=== PATIENT | male | born 1970 | race Caucasian/White ===

== ENCOUNTER 2017-01-09 18:53 | Emergency (ER) | payer SELFPAY ==
[~2017-01-09] VITALS: Ht 187.9 cm; Wt 83.9 kg
[2017-01-09] MEDS ORDERED: METFORMIN500 MG PO (19:06)
[2017-01-09] MEDS ORDERED: PAXIL10 MG PO (19:07)
[2017-01-09] MEDS ORDERED: GABAPENTIN400 MG PO (19:07)
[2017-01-09] MEDS ORDERED: NAPROSYN500 MG PO (20:54)
== END 2017-01-09 21:53 | disposition home or self-care (01) ==
LOC: ED 18:53
DX: S00.11XA Contusion of right eyelid and periocular area, initial encounter (principal); S29.9XXA Unspecified injury of thorax, initial encounter; Z79.899 Other long term (current) drug therapy; Z88.5 Allergy status to narcotic agent; Y08.89XA Assault by other specified means, initial encounter; Y93.89 Activity, other specified; Y92.89 Other specified places as the place of occurrence of the external cause; Y99.9 Unspecified external cause status